=== PATIENT | female | born 1975 | race Caucasian/White ===

== ENCOUNTER → 2017-10-22 | Outpatient (CLI) | payer OTHER ==
[~2017-10-22] MED LIST: ACET-1600 PO; ASCO500T8 PO; BIOTIN PO; CALCIUM PO; CHOL10003 PO; PROBIOTIC 10 PO; SERT50TA5 PO; VITA150T PO; VITAMIN E PO; [UNRECOGNIZED DRUG - OTHER] PO
[2017-10-22 14:16] LABS: MICROSCOPIC AUTO
[2017-10-22 14:17] LABS: CULTURE INDICATED? NO
[2017-10-22 14:24] LABS: ALANINE AMINOTRANSFERASE 23 U/L (12-78); ALBUMIN 4.1 g/dL (3.4-5.0); ANION GAP 6 mmol/L (5-15); CALCIUM 9.2 mg/dL (8.5-10.1); CHLORIDE 103 mmol/L (98-107); CREATININE 0.82 mg/dL (0.55-1.02)
[2017-10-22 14:28] LABS: ALKALINE PHOSPHATASE 43 U/L (45-117); BILIRUBIN,TOTAL 0.3 mg/dL (0.2-1.0); TOTAL PROTEIN 7.6 g/dL (6.4-8.2)
[2017-10-22 14:31] LABS: BASOPHILS # (AUTO) 0.03 x10^3/uL (0-0.1); BASOPHILS % (AUTO) 1 % (0-1); EOSINOPHILS # (AUTO) 0.08 x10^3/uL (0-0.4); EOSINOPHILS % (AUTO) 2 % (1-7); LYMPHOCYTES # (AUTO) 1.68 x10^3/uL (1-3.4); LYMPHOCYTES % (AUTO) 32 % (22-44); MD NO; MEAN CORPUSCULAR HEMOGLOBIN 31.1 pg (27.0-34.8); MEAN CORPUSCULAR HGB CONC 33.9 g/dL (32.4-35.8); MEAN CORPUSCULAR VOLUME 91.9 fL (80-100); MEAN PLATELET VOLUME 7.5 fL (7.4-10.4); MONOCYTES # (AUTO) 0.23 x10^3/uL (0.2-0.8); MONOCYTES % (AUTO) 4 % (2-9); NEUTROPHILS # (AUTO) 3.16 x10^3/uL (1.8-6.8); NEUTROPHILS % (AUTO) 61 % (42-75); PLATELET COUNT 314 x10^3/uL (130-400); RED BLOOD COUNT 4.36 x10^6/uL (3.82-5.3)
== END | disposition home or self-care (01) ==
LOC: STAR 13:13
PROVIDERS: ATTEND Obstetrics & Gynecology
DX: N92.1 Excessive and frequent menstruation with irregular cycle (principal); D25.9 Leiomyoma of uterus, unspecified; N80.0 Endometriosis of uterus
CPT/HCPCS: 36415; 80053; 81001; 84702; 85025; 93005

== ENCOUNTER 2017-10-29 05:35 | Day surgery (SDC) | payer OTHER ==
[~2017-10-29] VITALS: Ht 152.4 cm; Wt 54.5 kg
[2017-10-29] MEDS ORDERED: LACTATED RINGERS 1,000 ML IV SCH (06:02)
[2017-10-29 06:14] VITALS: BP 139/89
[2017-10-29] MEDS ORDERED: ACETAMINOPHEN 500 MG TABLET PO ONE (06:30)
[2017-10-29] MEDS ORDERED: GABAPENTIN 300 MG CAPSULE PO ONE (06:30)
[2017-10-29 06:40] LABS: HCG UR SG 1.016 (1.003-1.030)
[2017-10-29] MEDS ORDERED: MIDAZOLAM 1 MG/ML, 2ML ONE (07:01)
[2017-10-29] MEDS ORDERED: ROCURONIUM 10MG/ML,5ML ONE (07:02)
[2017-10-29] MEDS ORDERED: FENTANYL PF 250 MCG/5ML ONE (07:02)
[2017-10-29] MEDS ORDERED: PROPOFOL 10 MG/ML, 20ML ONE (07:02)
[2017-10-29] MEDS ORDERED: DEXAMETHASONE 4 MG/ML, 1ML ONE (07:05)
[2017-10-29] MEDS ORDERED: BUPIVACAINE/PF-EPI 0.25% 1:200K ONE (07:06)
[2017-10-29] MEDS ORDERED: BUPIVACAINE 0.25% ONE (07:06)
[2017-10-29] MEDS ORDERED: FLUORESCEIN SODIUM 500 MG/5 ML ONE (07:06)
[2017-10-29] MEDS ORDERED: PROMETHAZINE 12.5 MG SUPP PR PRN (07:30)
[2017-10-29] MEDS ORDERED: ONDANSETRON ODT 8 MG PO PRN (07:30)
[2017-10-29] MEDS ORDERED: OXYcodone 5 MG/5 ML ORAL.SOL UDC PO PRN (07:30)
[2017-10-29] MEDS ORDERED: HYDROmorphone 1 MG/ML, 1ML IV PRN (07:30)
[2017-10-29] MEDS ORDERED: FENTANYL PF 100 MCG/2ML IV PRN (07:30)
[2017-10-29] MEDS ORDERED: CEFAZOLIN 1,000 MG ONE (07:45)
[2017-10-29] MEDS ORDERED: BUPIVACAINE/PF-EPI 0.25% 1:200K INFIL ONE (07:59)
[2017-10-29] MEDS ORDERED: OXYcodone 5 MG/5 ML ORAL.SOL UDC ONE ×2 (10:02→10:04)
[2017-10-29] MEDS ORDERED: MEPERIDINE/PF 50 MG/ML ONE (10:03)
[2017-10-29] MEDS: MEPERIDINE/PF 25MG/0.5ML IVPush PRN ×2 (10:07→10:25)
[2017-10-29] MEDS ORDERED: OXYcodone IR 5MG TABLET ONE (15:27)
== END 2017-10-29 16:55 | disposition home or self-care (01) ==
LOC: OUT 05:35
PROVIDERS: ATTEND Obstetrics & Gynecology
DX: N92.0 Excessive and frequent menstruation with regular cycle (principal); N83.8 Other noninflammatory disorders of ovary, fallopian tube and broad ligament; D25.9 Leiomyoma of uterus, unspecified; N80.3 Endometriosis of pelvic peritoneum; I10 Essential (primary) hypertension; F41.9 Anxiety disorder, unspecified; Z98.890 Other specified postprocedural states
CPT/HCPCS: 58552; 81025; 88307; J0690; J1100; J2175; J2250; J2704; J3010; J7120; Q0162; J3490

== ENCOUNTER 2018-10-01 08:13 | Emergency (ER) | payer OTHER ==
[~2018-10-01] VITALS: Ht 152.4 cm; Wt 53.9 kg
[~2018-10-01 08:13] MED LIST changes: +SERT50TA28 PO; -SERT50TA5 PO
[2018-10-01 08:15] VITALS: BP 154/88
--- NOTE | 2018-10-01 08:51 | NUR ---
MUSIC ENGRAVER: Patient ambulates to room independently with steady gait.
[2018-10-01 09:50] LABS: BASOPHILS # (AUTO) 0.02 x10^3/uL (0-0.1); BASOPHILS % (AUTO) 1 % (0-1); EOSINOPHILS # (AUTO) 0.03 x10^3/uL (0-0.4); EOSINOPHILS % (AUTO) 1 % (1-7); LYMPHOCYTES # (AUTO) 1.35 x10^3/uL (1-3.4); LYMPHOCYTES % (AUTO) 27 % (22-44); MD NO; MEAN CORPUSCULAR HEMOGLOBIN 31.3 pg (27.0-34.8); MEAN CORPUSCULAR HGB CONC 33.3 g/dL (32.4-35.8); MEAN CORPUSCULAR VOLUME 94.1 fL (80-100); MEAN PLATELET VOLUME 7.7 fL (7.4-10.4); MONOCYTES # (AUTO) 0.23 x10^3/uL (0.2-0.8); MONOCYTES % (AUTO) 5 % (2-9); NEUTROPHILS # (AUTO) 3.37 x10^3/uL (1.8-6.8); NEUTROPHILS % (AUTO) 67 % (42-75); PLATELET COUNT 234 x10^3/uL (130-400); RED BLOOD COUNT 4.75 x10^6/uL (3.82-5.3); RED CELL DISTRIBUTION WIDTH 12.7 % (9.6-15.2)
--- NOTE | 2018-10-01 09:57 | NUR ---
PT BACK FROM CT. URINE COLLECTED/SENT TO LAB. CALL LIGHT WITHIN REACH. PT WITHOUT KEBEDE AT THIS TIME, INTERMITTENT DIZZINESS.
[2018-10-01 10:07] LABS: ALBUMIN 4.4 g/dL (3.4-5.0); ANION GAP 4 mmol/L (5-15); CALCIUM 9.6 mg/dL (8.5-10.1); CHLORIDE 107 mmol/L (98-107)
[2018-10-01 10:07] LABS: MICROSCOPIC NOT IND
[2018-10-01 10:12] LABS: ALANINE AMINOTRANSFERASE 23 U/L (12-78); ALKALINE PHOSPHATASE 41 U/L (45-117); BILIRUBIN,TOTAL 0.4 mg/dL (0.2-1.0); CREATININE 0.92 mg/dL (0.55-1.02); TOTAL PROTEIN 7.8 g/dL (6.4-8.2)
[2018-10-01 10:13] LABS: CULTURE INDICATED? NO
== END 2018-10-01 10:41 | disposition home or self-care (01) ==
LOC: ED 10:29
DX: R42 Dizziness and giddiness (principal); J32.0 Chronic maxillary sinusitis; H57.12 Ocular pain, left eye; G43.909 Migraine, unspecified, not intractable, without status migrainosus; Z98.890 Other specified postprocedural states
CPT/HCPCS: 36415; 70450; 80053; 81003; 85025; 93005; 99284

== ENCOUNTER 2019-12-19 13:06 | Emergency (ER) | payer OTHER ==
[~2019-12-19] VITALS: Ht 152.4 cm; Wt 57.9 kg
[2019-12-19] MEDS ORDERED: SODIUM CHLORIDE FLUSH 10ML SYR IVF ONE (14:00)
[2019-12-19] MEDS ORDERED: ONDANSETRON 2MG/ML, 2ML IVPush ONE (14:00)
[2019-12-19 14:04] LABS: MICROSCOPIC NOT IND
[2019-12-19] MEDS ORDERED: ONDANSETRON 2MG/ML, 2ML ONE (14:05)
[2019-12-19 14:08] LABS: BASOPHILS # (AUTO) 0.01 x10^3/uL (0-0.1); BASOPHILS % (AUTO) 0 % (0-1); EOSINOPHILS # (AUTO) 0.02 x10^3/uL (0-0.4); EOSINOPHILS % (AUTO) 0 % (1-7); LYMPHOCYTES # (AUTO) 1.18 x10^3/uL (1-3.4); LYMPHOCYTES % (AUTO) 17 % (22-44); MD NO; MEAN CORPUSCULAR HEMOGLOBIN 31.5 pg (27.0-34.8); MEAN CORPUSCULAR HGB CONC 33.3 g/dL (32.4-35.8); MEAN CORPUSCULAR VOLUME 94.6 fL (80-100); MEAN PLATELET VOLUME 7.9 fL (7.4-10.4); MONOCYTES # (AUTO) 0.31 x10^3/uL (0.2-0.8); MONOCYTES % (AUTO) 5 % (2-9); NEUTROPHILS # (AUTO) 5.34 x10^3/uL (1.8-6.8); NEUTROPHILS % (AUTO) 78 % (42-75); PLATELET COUNT 235 x10^3/uL (130-400); RED BLOOD COUNT 4.61 x10^6/uL (3.82-5.3); RED CELL DISTRIBUTION WIDTH 13.9 % (9.6-15.2)
[2019-12-19 14:20] LABS: ALBUMIN 3.9 g/dL (3.4-5.0); ANION GAP 8 mmol/L (5-15); CHLORIDE 106 mmol/L (98-107)
[2019-12-19] MEDS ORDERED: MORPHINE SULFATE 4 MG/ML, 1ML ONE (14:20)
[2019-12-19 14:25] LABS: ALANINE AMINOTRANSFERASE 29 U/L (12-78); ALKALINE PHOSPHATASE 36 U/L (45-117); BILIRUBIN,TOTAL 0.6 mg/dL (0.2-1.0); TOTAL PROTEIN 7.3 g/dL (6.4-8.2)
[2019-12-19] MEDS ORDERED: MORPHINE SULFATE 4 MG/ML, 1ML IVPush PRN (14:30)
--- NOTE | 2019-12-19 14:38 | NUR ---
BREAK RN: PT TO CT
[2019-12-19] MEDS ORDERED: OMNIPAQUE 350 MG/ML, 100ML BOTTLE ONE (15:12)
[2019-12-19 15:32] VITALS: BP 140/88
[2019-12-19] MEDS ORDERED: OXYcodone/APAP 5/325MG TABLET PO ONE (16:30)
[2019-12-19] MEDS ORDERED: OXYcodone/APAP 5/325MG TABLET ONE (16:35)
== END 2019-12-19 17:53 | disposition home or self-care (01) ==
LOC: ED 14:03
DX: R10.32 Left lower quadrant pain (principal); R11.0 Nausea; Z90.710 Acquired absence of both cervix and uterus
CPT/HCPCS: 36415; 74177; 76830; 80053; 81003; 85025; 96374; 96375; 99285; J2270; J2405; Q9967

== ENCOUNTER 2019-12-21 10:42 | Day surgery (SDC) | payer OTHER ==
[~2019-12-21] VITALS: Ht 152.4 cm; Wt 56.5 kg
[2019-12-21] MEDS ORDERED: LACTATED RINGERS 1,000 ML IV SCH (10:47)
[2019-12-21] MEDS ORDERED: CHLORHEXIDINE 15 ML UDC MM ONE (11:00)
[2019-12-21 11:18] VITALS: BP 146/94
[2019-12-21] MEDS ORDERED: LORA0.5P PO (11:27)
[2019-12-21] MEDS ORDERED: SERT25TA3 PO (11:27)
[2019-12-21] MEDS ORDERED: ACET325T14 PO (11:27)
[2019-12-21] MEDS ORDERED: OXYC-302 PO (11:27)
[2019-12-21] MEDS ORDERED: GABAPENTIN 300 MG CAPSULE PO ONE (11:30)
[2019-12-21] MEDS ORDERED: ACETAMINOPHEN 500 MG TABLET PO ONE (11:30)
[2019-12-21 11:36] LABS: BASOPHILS # (AUTO) 0.01 x10^3/uL (0-0.1); BASOPHILS % (AUTO) 0 % (0-1); EOSINOPHILS # (AUTO) 0.01 x10^3/uL (0-0.4); EOSINOPHILS % (AUTO) 0 % (1-7); LYMPHOCYTES # (AUTO) 0.49 x10^3/uL (1-3.4); LYMPHOCYTES % (AUTO) 4 % (22-44); MD NO; MEAN CORPUSCULAR HEMOGLOBIN 31.6 pg (27.0-34.8); MEAN CORPUSCULAR HGB CONC 33.7 g/dL (32.4-35.8); MEAN PLATELET VOLUME 7.4 fL (7.4-10.4); MONOCYTES # (AUTO) 0.37 x10^3/uL (0.2-0.8); MONOCYTES % (AUTO) 3 % (2-9); NEUTROPHILS # (AUTO) 10.32 x10^3/uL (1.8-6.8); NEUTROPHILS % (AUTO) 92 % (42-75); PLATELET COUNT 227 x10^3/uL (130-400); RED BLOOD COUNT 4.41 x10^6/uL (3.82-5.3); RED CELL DISTRIBUTION WIDTH 13.4 % (9.6-15.2)
[2019-12-21] MEDS ORDERED: FENTANYL PF 100 MCG/2ML ONE ×3 (11:39→13:30)
[2019-12-21] MEDS ORDERED: MIDAZOLAM 1 MG/ML, 2ML ONE (11:39)
[2019-12-21] MEDS ORDERED: PROPOFOL 50 ML ONE (11:42)
[2019-12-21] MEDS ORDERED: DEXAMETHASONE 4 MG/ML, 1ML ONE (11:53)
[2019-12-21] MEDS ORDERED: CEFAZOLIN 1,000 MG ONE (11:53)
[2019-12-21] MEDS ORDERED: ONDANSETRON 2MG/ML, 2ML ONE (11:53)
[2019-12-21] MEDS ORDERED: BUPIVACAINE/PF 0.25% ONE (12:00)
[2019-12-21] MEDS ORDERED: SUGAMMADEX 200 MG/2 ML IVPush ONE (12:19)
[2019-12-21] MEDS ORDERED: HEPARIN 1,000 UNITS/ML, 10ML ONE (12:29)
[2019-12-21] MEDS ORDERED: LORazepam 2 MG/ML, 1ML IVPush PRN (12:30)
[2019-12-21] MEDS ORDERED: ONDANSETRON 2MG/ML, 2ML IVPush PRN (12:30)
[2019-12-21] MEDS ORDERED: PROMETHAZINE 25 MG SUPP PR PRN (12:30)
[2019-12-21] MEDS ORDERED: DIAZEPAM 5 MG/ML, 2ML IVPush PRN (12:30)
[2019-12-21] MEDS ORDERED: MEPERIDINE/PF 25MG/0.5ML IVPush PRN (12:30)
[2019-12-21] MEDS ORDERED: FENTANYL PF 100 MCG/2ML IV PRN (12:30)
[2019-12-21] MEDS ORDERED: PROMETHAZINE 25 MG/ML, 1ML IVPush PRN (12:30)
[2019-12-21] MEDS ORDERED: METHOCARBAMOL 1,000 MG in DEXTROSE 5% 100 ML IV PRN (12:30)
[2019-12-21] MEDS ORDERED: HYDROmorphone 1 MG/ML, 1ML INJ IVPush PRN (12:30)
[2019-12-21] MEDS ORDERED: OXYcodone 5 MG/5 ML ORAL.SOL UDC ONE (13:31)
[2019-12-21] MEDS: OXYcodone 5 MG/5 ML ORAL.SOL UDC PO PRN ×2 (13:33→16:20)
[2019-12-21] MEDS ORDERED: LORazepam 2 MG/ML, 1ML ONE (14:07)
== END 2019-12-21 16:20 | disposition home or self-care (01) ==
LOC: OUT 10:42 → EDSTATUS 12:15 → OUT 16:20
PROVIDERS: ATTEND Obstetrics & Gynecology
DX: N83.512 Torsion of left ovary and ovarian pedicle (principal); N83.8 Other noninflammatory disorders of ovary, fallopian tube and broad ligament; I10 Essential (primary) hypertension; F41.9 Anxiety disorder, unspecified; Z90.710 Acquired absence of both cervix and uterus; Z72.89 Other problems related to lifestyle; Z98.890 Other specified postprocedural states; Z79.899 Other long term (current) drug therapy; Z82.49 Family history of ischemic heart disease and other diseases of the circulatory system; Z83.3 Family history of diabetes mellitus; Z80.42 Family history of malignant neoplasm of prostate
CPT/HCPCS: 36415; 58940; 85025; 86304; 87635; 88112; 88305; J0690; J1100; J1644; J2060; J2250; J2405; J2704; J3010; J3490; J7120

== ENCOUNTER → 2020-02-14 | Outpatient (CLI) | payer OTHER ==
[~2020-02-14] MED LIST changes: +ACET325T14 PO; +LORA0.5P PO; +OXYC-302 PO; +SERT25TA3 PO
== END | disposition home or self-care (01) ==
LOC: CFH 12:32
PROVIDERS: ATTEND Obstetrics & Gynecology
DX: Z12.31 Encounter for screening mammogram for malignant neoplasm of breast (principal)
CPT/HCPCS: 77063; 77067